=== PATIENT | female | born 1990 | race Caucasian/White ===

== ENCOUNTER 2022-01-13 08:41 | Emergency (ER) | payer OTHER ==
[2022-01-13 09:43] LABS: HEMOGLOBIN 14.7 gm/dl (12.3-15.3); RED BLOOD COUNT 5.3 M/UL (4.00-5.10); WHITE BLOOD COUNT 7.4 K/UL (4.5-11.0)
[2022-01-13 10:30] LABS: BUN/CREATININE RATIO 19 (0-10)
== END 2022-01-13 12:55 | disposition home or self-care (01) ==
LOC: ER1 08:41
PROVIDERS: Nurse Practitioner
DX: O20.0 Threatened abortion (principal); Z3A.01 Less than 8 weeks gestation of pregnancy
CPT/HCPCS: 76817; 80053; 81001; 84702; 85025; 86900; 86901; 87086; 99284